=== PATIENT | female | born 1995 | race Asian ===

== ENCOUNTER 2023-10-07 10:17 | Outpatient (REF) | payer OTHER, SELFPAY ==
--- NOTE | ~2023-10-07 | US_ITS ---
EXAMINATION: US PELVIS CLINICAL INFORMATION: Secondary dysmenorrhea COMPARISON: None available. TECHNIQUE: Ultrasound of the pelvis is performed using both transabdominal and transvaginal transducers along with Doppler. Transvaginal imaging is performed due to inadequate visualization transabdominally. FINDINGS: Uterus: The uterus is anteverted and measures 6.4 x 3.5 x 4.6 cm. The uterus appears normal. The endometrial stripe measures 1.1 cm. There is an IUD which appears properly positioned. Adnexa: The right ovary measures 2.4 x 1.7 x 2.7 cm, 6 mL. The left ovary measures 3.4 x 2.2 x 2.6 cm, volume 10 mL. Normal follicles are seen. No free fluid. US/US pelvic and transvaginal IMPRESSION: IUD appears appropriately positioned.
== END 2023-10-07 10:18 | disposition home or self-care (01) ==
LOC: HO.UMASIMG 10:17
PROVIDERS: Visit Provider Family Medicine
DX: N94.5 Secondary dysmenorrhea (principal); N76.0 Acute vaginitis; R42 Dizziness and giddiness
CPT/HCPCS: 76830; 76856